=== PATIENT | male | born 1970 | race Caucasian/White ===

== ENCOUNTER 2022-11-01 18:45 | Emergency (ER) | payer BC, OTHER ==
[~2022-11-01] VITALS: Ht 177.8 cm; Wt 122.8 kg
[2022-11-01] MEDS ORDERED: LACTATED RINGERS 1,000 ML IV STA (18:51)
--- NOTE | 2022-11-01 18:51 | ED Cardiac General ---
History of Present Illness General Chief Complaint: Cardiac/General Problems Stated Complaint: SVT Source: patient, EMS Exam Limitations: no limitations History of Present Illness Date Seen by Provider: Nov 01, 2022 Time Seen by Provider: 18:45 Initial Comments 52-year-old male with past medical history of SVT and hypertension coming in via EMS from walk-in clinic due to concerns for SVT. He noticed that started around 10 AM, normally he is able to break it himself, but he was unable to. He recently has cut down on caffeine and now only drinks 1 cup of coffee per day. Denies any significant chest pain or shortness of breath with it. Otherwise denying any other acute complaints. Allergies and Home Medications Allergies Coded Allergies: No Known Drug Allergies (Unverified , 11/01/22) Patient Home Medication List Home Medication List Reviewed: Yes Review of Systems Review of Systems Constitutional: No fever EENTM: No Symptoms Reported Respiratory: No Symptoms Reported Cardiovascular: See HPI Gastrointestinal: No Symptoms Reported Genitourinary: No Symptoms Reported Musculoskeletal: no symptoms reported Past [id number] Hx Patient Social History Tobacco Use?: No Substance use?: No Alcohol Use?: No Past Medical History Surgeries: No Physical Exam Vital Signs Vital Signs - First Documented 11/01/22 19:13 Pulse 108 B/P (MAP) 127/84 Capillary Refill : Height, Weight, BMI Height: '" Weight: lbs. oz. kg; BMI Method: General Appearance: No Apparent Distress, WD/WN HEENT: PERRL/EOMI, Normal ENT Inspection, Pharynx Normal Neck: Full Range of Motion, Normal Inspection, Non Tender, Supple Respiratory: Chest Non Tender, Lungs Clear, Normal Breath Sounds, No Accessory Muscle Use, No Respiratory Distress Cardiovascular: No Edema, Normal Peripheral Pulses, Tachycardia Gastrointestinal: Normal Bowel Sounds, Non Tender, Soft Extremity: Normal Capillary Refill, Normal Inspection, Normal Range of Motion, Non Tender, No Calf Tenderness, No Pedal Edema Neurologic/Psychiatric: Alert, No Motor/Sensory Deficits, Normal Mood/Affect Skin: Normal Color, Warm/Dry Lymphatic: No Adenopathy Progress/Results/Core Measures Results/Orders My Orders Orders - PHYLLIS HENRY MD Lactated Ringers (Lr 1000 Ml Iv Solution (11/01/22 18:51) Diltiazem Cd 24 Hr Capsule (Cardizem Cd (11/01/22 19:00) Diltiazem Injection (Cardizem Injection) (11/01/22 19:00) Ekg Tracing (11/01/22 18:51) Ekg Tracing (11/01/22 18:51) Medications Given in ED Current Medications Medications Dose Ordered Sig/Vanessa Route Start Time Stop Time Status Last Admin Dose Admin Diltiazem HCl 10 mg ONCE ONCE IVP 11/01/22 19:00 11/01/22 19:01 DC 11/01/22 19:13 10 MG Diltiazem HCl 120 mg ONCE ONCE PO 11/01/22 19:00 11/01/22 19:01 DC 11/01/22 19:11 120 MG Vital Signs/I&O 11/01/22 19:13 Pulse 108 B/P (MAP) 127/84 Progress Progress Note : Progress Note 52-year-old male presenting due to SVT. Heart rate was elevated in SVT and blood pressure was okay on arrival. We performed vagal maneuvers which converted him. An IV was placed and he was given a bolus of IV fluids followed by diltiazem as well to help keep him from going back into SVT. This is his first encounter that he is required to be in the ER, but this has been going on for many years. I will have him follow-up with a sexologist. He is never having any chest pain or shortness of breath and is back to his baseline. He was then discharged home in stable condition with strict return precautions. Initial ECG Impression Date: Nov 01, 2022 Initial ECG Impression Time: 18:47 Initial ECG Rate: 172 Initial ECG Rhythm: SVT Comment Narrow QRS, normal axis, SVT, no STEMI EKG : EKG Time: 18:49 Rate: 114 Rhythm: S.Tach Comment Narrow QRS, normal axis, no STEMI Departure Impression Primary Impression: Supraventricular tachycardia Disposition: 01 HOME, SELF-CARE Condition: Improved Departure-Patient Inst. Decision time for Depature: 19:45 Referrals: MAKEDA PALOMINO MD Patient Instructions: Paroxysmal Supraventricular Tachycardia (DC) Add. Discharge Instructions: You were in a rhythm called supraventricular tachycardia also known as SVT. It is very common and typically is not very dangerous. You can try vagal maneuvers which is blowing into a straw laying back and elevating your legs like we did in the ER. If this becomes a recurrent issue, I recommend following up with Dr. Palomino, the sexologist in [facility]. Caffeine typically is something that causes this or makes it worse Work/School Note: Work Release Form Date Seen in the Emergency Department: Nov 01, 2022 Return to Work: Nov 02, 2022 Restrictions: No Restrictions PHYLLIS HENRY MD Nov 01, 2022 18:51
[2022-11-01] MEDS ORDERED: dilTIAZem120 MG (CARDIZEM CD) CAP PO ONE (19:00)
[2022-11-01 20:12] VITALS: BP 108/65
[2022-11-01] MEDS ORDERED: TADA20TA43 PO (23:34)
[2022-11-01] MEDS ORDERED: Embrel (23:34)
== END 2022-11-01 20:12 | disposition home or self-care (01) ==
LOC: ER FS 18:48
DX: I47.1 Supraventricular tachycardia (principal); Z28.310 Unvaccinated for COVID-19
CPT/HCPCS: 93005